=== PATIENT | female | born 1995 | race Two or more races ===

== ENCOUNTER 2022-07-17 09:16 | Emergency (ER) | payer OTHER ==
[~2022-07-17] VITALS: Ht 154.9 cm; Wt 69.4 kg
[2022-07-17] MEDS ORDERED: MAXFE CAPLET1 EAC1 PO (16:35)
[2022-07-17] MEDS ORDERED: DOLOGEN CAPLET1 EACH PO (16:35)
== END 2022-07-17 16:56 | disposition home or self-care (01) ==
LOC: ER 09:16
DX: I88.0 Nonspecific mesenteric lymphadenitis (principal); R10.13 Epigastric pain; Z20.822 Contact with and (suspected) exposure to COVID-19

== ENCOUNTER 2022-08-04 01:39 | Emergency (ER) | payer OTHER ==
[~2022-08-04] VITALS: Ht 154.9 cm; Wt 69.4 kg
[~2022-08-04 01:39] MED LIST: DOLOGEN CAPLET1 EACH PO; MAXFE CAPLET1 EAC1 PO
[2022-08-04] MEDS ORDERED: VITAMIN D350 MCG PO (01:52)
== END 2022-08-04 04:50 | disposition home or self-care (01) ==
LOC: ER 01:39
DX: D64.89 Other specified anemias (principal)

== ENCOUNTER 2024-09-29 15:14 | Emergency (ER) | payer OTHER ==
[~2024-09-29] VITALS: Ht 154.9 cm; Wt 68.0 kg
[~2024-09-29 15:14] MED LIST changes: +VITAMIN D350 MCG PO
[2024-09-29] MEDS ORDERED: [UNRECOGNIZED DRUG - OTHER] (15:30)
[2024-09-29 17:02] LABS: BASO % 0.6 % (0.1-1.2); EOS # 0.11 (0.04-0.54); EOS % 2.1 % (0.7-7.0); HEMATOCRIT 37.6 % (34.1-44.9); HEMOGLOBIN 11.9 g/dL (11.2-15.7); LYMPH # 2.21 (1.18-3.74); LYMPH % 41.5 % (19.3-53.1); MEAN CORPUSCULAR HEMOGLOBIN 23.1 pg (25.6-32.2); MONO # 0.37 (0.24-0.82); MONO % 6.9 % (4.7-12.5); NEUT % 48.7 % (34.0-71.1); PLATELET COUNT 281 K/uL (163-369); RED BLOOD COUNT 5.15 M/uL (3.93-5.22); RED CELL DISTRIBUTION WIDTH 20.3 % (11.6-14.4)
[2024-09-29 17:36] LABS: ALBUMIN 3.7 gm/dL (3.4-5.0); BILIRUBIN TOTAL 0.24 mg/dL (0.3-1.2); CALCIUM 9.1 mg/dL (8.5-10.1); CREATININE SERUM 0.62 mg/dL (0.55-1.02); GFR 113.02; GLOBULINA 3.6 G/DL (2.4-3.5); POTASSIUM 4.07 mEq/L (3.5-5.1); TOTAL PROTEIN 7.3 gm/dL (6.4-8.2)
[2024-09-29] MEDS ORDERED: MEDROXYPROGESTE10 MG PO (18:30)
== END 2024-09-29 18:37 | disposition home or self-care (01) ==
LOC: ER 15:14
PROVIDERS: General Practice
DX: N93.8 Other specified abnormal uterine and vaginal bleeding (principal)

== ENCOUNTER 2025-03-07 23:24 | Emergency (ER) | payer OTHER ==
[~2025-03-07] VITALS: Ht 154.9 cm; Wt 70.3 kg
[~2025-03-07 23:24] MED LIST changes: +MEDROXYPROGESTE10 MG PO; +[UNRECOGNIZED DRUG - OTHER]
[2025-03-08] MEDS ORDERED: 0.9 % SODIUM CHLORIDE 1,000 ML IV ONE (00:15)
[2025-03-08] MEDS ORDERED: PROMETHAZINE HCL 50 MG/ML AMPUL IM STA (00:15)
[2025-03-08] MEDS ORDERED: LACTOBACILLUS ACIDOPHILUS 1 CAP CAP PO STA (00:16)
[2025-03-08] MEDS ORDERED: FAMOTIDINE/PF 20 MG/2 ML VIAL IV PUSH STA (00:16)
[2025-03-08 00:51] LABS: BASO % 0.0 % (0.1-1.2); EOS # 0.02 (0.04-0.54); EOS % 0.4 % (0.7-7.0); LYMPH # 0.64 (1.18-3.74); LYMPH % 14.2 % (19.3-53.1); MEAN PLATELET VOLUME 9.10 fl (9.4-12.4); MONO # 0.26 (0.24-0.82); MONO % 5.8 % (4.7-12.5); NEUT # 3.60 (1.56-6.13); NEUT % 79.6 % (34.0-71.1); RED CELL DISTRIBUTION WIDTH 21.7 % (11.6-14.4)
[2025-03-08 01:07] LABS: COVID-19 AG NEGATIVE (NEGATIVE)
[2025-03-08 01:18] LABS: ALT/SGPT 26.0 U/L (12-78); AST/SGOT 15.0 U/L (15-37); BILIRUBIN TOTAL 0.68 mg/dL (0.3-1.2); BUN CREA RATIO 20.0 (7.0-25.0); CREATININE SERUM 0.56 mg/dL (0.55-1.02); GFR 127.11; GLOBULINA 3.5 G/DL (2.4-3.5); GLUCOSE FASTING 116.0 mg/dL (65-100); OSMOLALITY SERUM 280.0 MOSM/KG (275-295)
[2025-03-08 01:25] LABS: URINE APPEARANCE Clear; URINE BILIRRUBIN Negative (NEGATIVE); URINE BLOOD Small; URINE COLOR Yellow; URINE GLUCOSE Negative (NEGATIVE); URINE KETONE 15 (NEGATIVE); URINE LEUKOCYTE Negative; URINE NITRATE Negative; URINE PROTEIN Negative (NEGATIVE); URINE UROBILINOGEN 1.0 E.U./dl
[2025-03-08 01:29] LABS: URINE BACTERIA 13.1 uL (0.0-1933); URINE EPITHELIAL CELLS 9.6 uL (0.0-38.8); URINE RBC 31.2 uL (0.0-20.8)
[2025-03-08 01:46] LABS: URINE CAST 0.00 uL (0.0-1.40); URINE WBC 1.6 uL (0.0-23.2)
[2025-03-08] MEDS ORDERED: INTESTINEX680 M1 PO (04:31)
[2025-03-08] MEDS ORDERED: ZOFRAN8 MG PO (04:31)
[2025-03-08] MEDS ORDERED: PEPCID40 MG PO (04:31)
== END 2025-03-08 04:39 ==
LOC: ER 23:24
PROVIDERS: General Practice
DX: A08.39 Other viral enteritis (principal); R53.81 Other malaise; Z20.822 Contact with and (suspected) exposure to COVID-19